=== PATIENT | male | born 1985 | race African-American/Black ===

== ENCOUNTER 2016-12-11 01:12 | Emergency (ER) | payer OTHER ==
[~2016-12-11] VITALS: Ht 175.3 cm; Wt 80.3 kg
--- NOTE | 2016-12-11 01:26 | Emergency Room Report ---
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 He presents with injury to the left thumb. He was arresting someone and scraped his left thumb against the wall. He complaining of some mild pain and skin avulsion. No other injury. Occurred just prior to arrival. Allergies: Coded Allergies: No Known Allergies (Unverified , 12/11/16) Patient History Past Medical History: none, see triage record, old chart reviewed Past Surgical History: none Pertinent Family History: none Social History: Denies: smoking Immunizations: UTD Reviewed Nursing Documentation: PMH: Agreed, PSxH: Agreed Review of Systems Eye: Denies: blurred vision, eye pain ENT: Denies: ear pain, nose congestion, throat swelling Respiratory: Denies: cough, shortness of breath Cardiovascular: Denies: chest pain, palpitations Gastrointestinal: Denies: abdominal pain, diarrhea, nausea, vomiting Musculoskeletal: Denies: back pain, joint pain Skin: Denies: rash Neurological: Denies: headache, numbness Endocrine: Denies: increased thirst, increased urine Hematologic/Lymphatic: Denies: easy bruising All Other Systems: negative except mentioned in HPI Physical Exam vitals normal Sp02 EP Interpretation: reviewed, normal General Appearance: well appearing, no apparent distress, alert Head: normocephalic, atraumatic Eyes: bilateral eye EOMI, bilateral eye PERRL ENT: hearing grossly normal, normal pharynx Neck: full range of motion, supple, no meningismus Respiratory: chest non-tender, lungs clear, normal breath sounds Cardiovascular #1: regular rate, rhythm, no murmur Gastrointestinal: normal bowel sounds, non tender, no mass, no organomegaly, no bruit, non-distended Musculoskeletal: back normal, gait/station normal, normal range of motion, other - Small skin avulsion of the PIP joint of the left thumb. Full range of motion. Sensation normal. Psychiatric: mood/affect normal Skin: warm/dry Medical Decision Making Diagnostic Impression: Primary Impression: Avulsion of skin of finger Qualified Codes: S61.209A - Unspecified open wound of unspecified finger without damage to nail, initial encounter ER Course Patient with skin avulsion. No fracture. No laceration. We'll discharge him. Status: improved Disposition: HOME, SELF-CARE Condition: Stable Additional Instructions: followup with your Dr. in 7 days. Return if worse. Keep wound clean. CLAIR MCKEON M.D. Dec 11, 2016 01:26
[2016-12-11] MEDS ORDERED: Bacitracin Oint UD TOPIC ONE (01:30)
[2016-12-11 01:31] VITALS: BP 124/79
[2016-12-11 01:45] VITALS: BP 124/79
== END 2016-12-11 02:00 | disposition home or self-care (01) ==
LOC: EMR 01:58
DX: S61.209A Unspecified open wound of unspecified finger without damage to nail, initial encounter (principal); S61.002A Unspecified open wound of left thumb without damage to nail, initial encounter; W22.8XXA Striking against or struck by other objects, initial encounter; Y93.9 Activity, unspecified; Y92.9 Unspecified place or not applicable
CPT/HCPCS: 99282

== ENCOUNTER 2017-02-15 19:35 | Emergency (ER) | payer OTHER ==
[~2017-02-15] VITALS: Ht 175.3 cm; Wt 79.4 kg
[2017-02-15] MEDS ORDERED: Bacitracin Oint UD TOPIC ONE (20:15)
[2017-02-15] MEDS ORDERED: IBUPROFEN600 MG ORAL (20:35)
[2017-02-15] MEDS ORDERED: LIDOCAINE15 GM TP (20:35)
[2017-02-15] MEDS ORDERED: AUGMENTIN 875-1 EAC1 ORAL (20:35)
[2017-02-15 20:40] VITALS: BP 144/82
--- NOTE | 2017-02-15 22:29 | Emergency Room Report ---
History of Present Illness General Chief Complaint: Animal Bite Source: Patient Present Illness HPI 31-year-old male presents to the emergency department complaining of recently sustained dog bite to the right thigh while at work. Patient reports some mild initial bleeding which has resolved. Patient reports bruising and some swelling. Pt. states he is UTD with tetanus vaccination. Patient reports localized 3/10 in severity pain. Pt. reports unfamiliar dog, however safety consultant reports rabies on animal is UTD Patient states he is up-to-date with tetanus vaccination. Denies numbness tingling or loss of sensation or gross motor movements of the extremity. Allergies: Coded Allergies: DOXYCYCLINE (Verified Allergy, Unknown, 12/11/16) SULFAMETHOXAZOLE (Verified Allergy, Unknown, 12/11/16) TRIMETHOPRIM (Verified Allergy, Unknown, 12/11/16) Patient History Past Medical History: see triage record Past Surgical History: none Pertinent Family History: none Immunizations: UTD Reviewed Nursing Documentation: PMH: Agreed, PSxH: Agreed Nursing Documentation-PMH Past Medical History: No Stated History Review of Systems All Other Systems: negative except mentioned in HPI Physical Exam Vital Signs Date Time Temp Pulse Resp B/P (MAP) Pulse Ox O2 Delivery O2 Flow Rate FiO2 02/15/17 19:43 98.1 88 16 144/82 97 Room Air Sp02 EP Interpretation: reviewed, normal General Appearance: no apparent distress, alert, GCS 15, non-toxic Head: normocephalic, atraumatic Eyes: bilateral eye normal inspection, bilateral eye PERRL ENT: hearing grossly normal, normal voice Neck: full range of motion Respiratory: normal breath sounds, speaking full sentences Cardiovascular #1: regular rate, rhythm Musculoskeletal: back normal, gait/station normal, normal range of motion, swelling - anterior right thigh with swelling and hematoma, tender - TTP anterior right thigh Neurologic: alert, oriented x3, responsive, motor strength/tone normal, sensory intact, speech normal Psychiatric: judgement/insight normal, memory normal, mood/affect normal Skin: normal color, no rash, warm/dry, well hydrated, other - two sets of puncture wounds with associated abrasions, not bleeding at this time, do not extend into the tissues beneath the dermis. , hematoma - right anterior thigh Medical Decision Making PA Attestation Dr. Diaz is my supervising Physician whom patient management has been discussed with. Diagnostic Impression: Primary Impression: Bite by animal ER Course 31-year-old male presents to the emergency department complaining of recently sustained dog bite to the right thigh while at work. Patient reports some mild initial bleeding which has resolved. Patient reports bruising and some swelling. Pt. states he is UTD with tetanus vaccination. Patient reports localized 3/10 in severity pain. Pt. reports unfamiliar dog, however safety consultant reports rabies on animal is UTD Patient states he is up-to-date with tetanus vaccination. Denies numbness tingling or loss of sensation or gross motor movements of the extremity. Ddx considered but are not limited to Cellulitis, rabies, fracture, neurovascular compromise of extremity. Vital signs: are WNL, pt. is afebrile H&PE are most consistent with dog bite of the right thigh, superficial with contusion, and swelling, ORDERS: none required at this time, the diagnosis is clinical ED INTERVENTIONS: -Wound cleaning is performed. -Bacitracin is applied. DISCHARGE: At this time pt. is stable for d/c to home. Will provide printed patient care instructions, and any necessary prescriptions. Care plan and follow up instructions have been discussed with the patient prior to discharge. Last Vital Signs Date Time Temp Pulse Resp B/P (MAP) Pulse Ox O2 Delivery O2 Flow Rate FiO2 02/15/17 20:40 98.1 16 144/82 97 Room Air 02/15/17 19:43 88 Disposition: HOME, SELF-CARE Condition: Stable Scripts Lidocaine (Lidocaine) 15 Gm Cream..g. 1 APPLIC TP QID, #30 GM 1 Refill Prov: Diane Caceres 02/15/17 Ibuprofen* (MOTRIN*) 600 Mg Tablet 600 MG ORAL THREE TIMES A DAY, #30 TAB 0 Refills Prov: Diane Caceres 02/15/17 Amoxicillin/Potassium Clav 875-125* (AUGMENTIN 875-125 TABLET*) 1 Each Tablet 1 TAB ORAL TWICE A DAY for 7 Days, #14 TAB Prov: Diane Caceres 02/15/17 Referrals: NOT CHOSEN [facility]/,REFERRING (PCP) Patient Instructions: Animal Bite Additional Instructions: Take medications as directed. Follow up with a Primary Care Provider in 3-5 days, even if your symptoms have resolved. --Please review list of primary care clinics, if you do not already have a primary care provider Return sooner to ED if new symptoms occur, or current symptoms become worse. - Please note that this Emergency Department Report was dictated using [employer] changer technology software, occasionally this can lead to erroneous entry secondary to interpretation by the dictation equipment. Diane Caceres Feb 15, 2017 22:29
== END 2017-02-15 20:45 | disposition home or self-care (01) ==
LOC: EMR 20:03
DX: S71.151A Open bite, right thigh, initial encounter (principal); S70.11XA Contusion of right thigh, initial encounter; S71.131A Puncture wound without foreign body, right thigh, initial encounter; W54.0XXA Bitten by dog, initial encounter; Y93.9 Activity, unspecified; Y99.9 Unspecified external cause status; Z88.2 Allergy status to sulfonamides
CPT/HCPCS: 99284